=== PATIENT | male | born 1970 | race Caucasian/White ===

== ENCOUNTER 2020-08-09 11:10 | Inpatient (IN) | payer OTHER ==
[2020-08-09] MEDS ORDERED: DEXAMETHASONE 4 MG TABLET (FP) PO ONE (11:32)
[2020-08-09] MEDS ORDERED: LACTATED RINGERS SOLUTION 1000 ML INFUS.BAG IV ONE (11:32)
[2020-08-09 11:57] LABS: BASO % 0.4 % (0-2.0); HEMATOCRIT 41.1 % (35.4-49); HEMOGLOBIN 14.1 GM/dL (11.7-16.9); LYMPH % 15.6 % (8-40); MCH 31.9 pg (25.7-33.7); MCHC 34.3 g/dl (32.0-35.9); MEAN PLT VOLUME 7.8 fl (7.5-11.1); MONO % 7.9 % (3.8-10.2); NEUT % 76.1 % (42.8-82.8); PLATELET COUNT 167 K/MM3 (134-434); RBC 4.42 M/mm3 (4.00-5.60); RDW 13.6 % (11.9-15.9); WHITE BLOOD COUNT 4.6 K/mm3 (4.0-10.0)
[2020-08-09] MEDS ORDERED: DEXAMETHASONE SOD PHOSPHATE 10 MG/1 ML VIAL ONE (11:57)
[2020-08-09 12:09] LABS: CHLORIDE 97 mmol/L (98-107); POTASSIUM 3.9 mmol/L (3.5-5.1); SODIUM 128 mmol/L (136-145)
[2020-08-09 12:11] LABS: ALBUMIN 3.5 g/dl (3.4-5.0); ANION GAP 7 MMOL/L (8-16); CO2 24 mmol/L (21-32); GLUCOSE,RANDOM 102 mg/dL (74-106)
[2020-08-09 12:14] LABS: SGOT/AST 87 U/L (15-37); SGPT/ALT 94 U/L (13-61)
[2020-08-09 12:16] LABS: BILIRUBIN,TOTAL 0.6 mg/dL (0.2-1); TOT PROT 7.4 g/dl (6.4-8.2)
[2020-08-09 12:17] LABS: ALK PHOS 68 U/L (45-117)
[2020-08-09 12:19] LABS: LDH 467 U/L (87-246)
[2020-08-09 13:31] LABS: EPI CELLS 5 /uL (0-25.1); HYALINE CASTS 0 /uL (0-3.1); URINE APPEARANCE CLEAR; URINE BACTERIA 335 /uL (0-1359); URINE BILIRUBIN NEGATIVE (NEGATIVE); URINE COLOR YELLOW; URINE GLUCOSE (UA) NEGATIVE (NEGATIVE); URINE KETONE NEGATIVE (NEGATIVE); URINE LEUK ESTERASE NEGATIVE (NEGATIVE); URINE NITRITE NEGATIVE (NEGATIVE); URINE PROTEIN 1+ (NEGATIVE); URINE RBC 9 /uL (0-23.9); URINE UROBILINOGEN 0.2 mg/dL (0.2-1.0); URINE WBC 9 /uL (0-25.8)
[2020-08-09] MEDS ORDERED: CEFTRIAXONE 1 GM/50 ML BAG ONE (14:34)
[2020-08-09] MEDS ORDERED: AZITHROMYCIN IVPB 500 MG/250 ML BAG IVPB ONE (14:35)
[2020-08-09] MEDS: CEFTRIAXONE 1 GM in DEXTROSE 5%-WATER - 50 ML IVPB SCH (14:49)
[2020-08-09] MEDS: AZITHROMYCIN IVPB 500 MG/250 ML BAG IVPB SCH (14:50)
[2020-08-09] MEDS ORDERED: REMDESIVIR 200 MG in SODIUM CHLORIDE 210 ML IVPB ONE (15:00)
[2020-08-09] MEDS ORDERED: ALBUTEROL SO4 HFA INHALER IH ONE (15:59)
[2020-08-09] MEDS: ALBUTEROL SO4 HFA INHALER IH SCH ×2 (16:00→22:35)
[2020-08-09] MEDS: ENOXAPARIN NA (PORCINE) 100 MG/1 ML DISP.SYRIN SQ SCH (22:21)
[2020-08-09] MEDS: BUDESONIDE/FORMETEROL FUMARATE 160/4.5 mcg INHALER IH SCH (22:22)
[2020-08-09] MEDS: ASCORBIC ACID 250 MG TABLET (FP) PO SCH (22:22)
[2020-08-09] MEDS: ZINC SULFATE 220 MG CAPSULE (FP) PO SCH (22:22)
[2020-08-10] MEDS: guaiFENesin/CODEINE 10 ML UNIT-DOSE CUPS PO PRN ×2 (07:07→21:11)
[2020-08-10 08:00] LABS: BASO % 0.2 % (0-2.0); HEMATOCRIT 42.3 % (35.4-49); HEMOGLOBIN 14.6 GM/dL (11.7-16.9); LYMPH % 26.4 % (8-40); MCH 32.1 pg (25.7-33.7); MCHC 34.4 g/dl (32.0-35.9); MEAN CELL VOLUME 93.3 fl (80-96); MEAN PLT VOLUME 7.8 fl (7.5-11.1); MONO % 8.8 % (3.8-10.2); NEUT % 64.6 % (42.8-82.8); PLATELET COUNT 187 K/MM3 (134-434); RBC 4.53 M/mm3 (4.00-5.60); RDW 13.8 % (11.9-15.9); WHITE BLOOD COUNT 4.2 K/mm3 (4.0-10.0)
[2020-08-10] MEDS: ALBUTEROL SO4 HFA INHALER IH SCH ×4 (08:00→21:12)
[2020-08-10 08:11] LABS: POTASSIUM 4.1 mmol/L (3.5-5.1)
[2020-08-10 08:21] LABS: CALCIUM 7.4 mg/dL (8.5-10.1)
[2020-08-10 08:22] LABS: MAGNESIUM 2.4 mg/dL (1.8-2.4); PHOSPHOROUS 3.6 mg/dL (2.5-4.9)
[2020-08-10 08:23] LABS: BILIRUBIN,TOTAL 0.5 mg/dL (0.2-1); TOT PROT 6.7 g/dl (6.4-8.2)
[2020-08-10 08:24] LABS: CREATININE 0.8 mg/dL (0.55-1.3)
[2020-08-10] MEDS ORDERED: cefTRIAXone SODIUM 1 GM VIAL ONE ×2 (09:47→11:33)
[2020-08-10] MEDS ORDERED: DEXTROSE 5%-WATER - 50 ML IVPB ONE ×2 (09:48→11:33)
[2020-08-10] MEDS: AZITHROMYCIN IVPB 500 MG/250 ML BAG IVPB SCH (09:56)
[2020-08-10] MEDS: CEFTRIAXONE 1 GM in DEXTROSE 5%-WATER - 50 ML IVPB SCH (09:57)
[2020-08-10] MEDS: ENOXAPARIN NA (PORCINE) 100 MG/1 ML DISP.SYRIN SQ SCH ×2 (09:57→21:12)
[2020-08-10] MEDS: CHOLECALCIFEROL (VIT D3) 1,000 UNIT (25 MCG) TABLET PO SCH (09:58)
[2020-08-10] MEDS: ASCORBIC ACID 250 MG TABLET (FP) PO SCH ×2 (09:58→21:16)
[2020-08-10] MEDS: ZINC SULFATE 220 MG CAPSULE (FP) PO SCH ×2 (09:58→21:12)
[2020-08-10] MEDS: DEXAMETHASONE SOD PHOSPHATE 10 MG/1 ML VIAL IVPUSH SCH (09:58)
[2020-08-10] MEDS ORDERED: ENOXAPARIN NA (PORCINE) 40 MG/0.4 ML DISP.SYRIN SQ SCH (10:00)
[2020-08-10] MEDS: BUDESONIDE/FORMETEROL FUMARATE 160/4.5 mcg INHALER IH SCH ×2 (10:03→21:13)
[2020-08-10] MEDS: MENTHOL/PHENOL 1 EACH UD MM PRN (10:26)
[2020-08-10] MEDS: REMDESIVIR 100 MG in SODIUM CHLORIDE 230 ML IVPB SCH (15:15)
[2020-08-10] MEDS ORDERED: SODIUM CHLORIDE NASAL SPRAY 44 ML BOTTLE NS PRN (20:07)
[2020-08-11 07:55] LABS: HEMATOCRIT 41.7 % (35.4-49); HEMOGLOBIN 14.1 GM/dL (11.7-16.9); MCH 31.9 pg (25.7-33.7); MCHC 33.9 g/dl (32.0-35.9); MEAN CELL VOLUME 93.9 fl (80-96); MEAN PLT VOLUME 7.7 fl (7.5-11.1); PLATELET COUNT 226 K/MM3 (134-434); RBC 4.44 M/mm3 (4.00-5.60); RDW 13.9 % (11.9-15.9); WHITE BLOOD COUNT 5.2 K/mm3 (4.0-10.0)
[2020-08-11] MEDS: ALBUTEROL SO4 HFA INHALER IH SCH ×4 (08:00→21:18)
[2020-08-11 08:22] LABS: POTASSIUM 4.3 mmol/L (3.5-5.1)
[2020-08-11 08:24] LABS: BLOOD UREA NITROGEN 16.8 mg/dL (7-18); CALCIUM 7.8 mg/dL (8.5-10.1)
[2020-08-11 08:27] LABS: CREATININE 0.7 mg/dL (0.55-1.3)
[2020-08-11] MEDS: guaiFENesin/CODEINE 10 ML UNIT-DOSE CUPS PO PRN ×2 (10:47→21:20)
[2020-08-11] MEDS: ZINC SULFATE 220 MG CAPSULE (FP) PO SCH ×2 (10:47→21:18)
[2020-08-11] MEDS: DEXAMETHASONE SOD PHOSPHATE 10 MG/1 ML VIAL IVPUSH SCH (10:47)
[2020-08-11] MEDS: ENOXAPARIN NA (PORCINE) 100 MG/1 ML DISP.SYRIN SQ SCH ×2 (10:47→21:18)
[2020-08-11] MEDS: CHOLECALCIFEROL (VIT D3) 1,000 UNIT (25 MCG) TABLET PO SCH (10:49)
[2020-08-11] MEDS: ASCORBIC ACID 250 MG TABLET (FP) PO SCH ×2 (10:49→21:19)
[2020-08-11] MEDS: BUDESONIDE/FORMETEROL FUMARATE 160/4.5 mcg INHALER IH SCH ×2 (10:52→21:18)
[2020-08-11] MEDS: REMDESIVIR 100 MG in SODIUM CHLORIDE 230 ML IVPB SCH (15:35)
[2020-08-11] MEDS ORDERED: PT OWN MED DRAWER 7, Y5N ONE ×2 (20:41→21:21)
[2020-08-11] MEDS: MENTHOL/PHENOL 1 EACH UD MM PRN (21:21)
[2020-08-12 07:22] LABS: HEMATOCRIT 40.3 % (35.4-49); HEMOGLOBIN 13.8 GM/dL (11.7-16.9); MCH 32.3 pg (25.7-33.7); MCHC 34.2 g/dl (32.0-35.9); MEAN CELL VOLUME 94.6 fl (80-96); MEAN PLT VOLUME 7.8 fl (7.5-11.1); PLATELET COUNT 239 K/MM3 (134-434); RBC 4.26 M/mm3 (4.00-5.60); RDW 13.5 % (11.9-15.9)
[2020-08-12 07:33] LABS: POTASSIUM 4.1 mmol/L (3.5-5.1)
[2020-08-12 07:35] LABS: CALCIUM 7.3 mg/dL (8.5-10.1)
[2020-08-12 07:36] LABS: ALBUMIN 2.8 g/dl (3.4-5.0); BLOOD UREA NITROGEN 15.1 mg/dL (7-18)
[2020-08-12 07:39] LABS: CREATININE 0.7 mg/dL (0.55-1.3)
[2020-08-12 07:40] LABS: BILIRUBIN,TOTAL 0.5 mg/dL (0.2-1); TOT PROT 6.2 g/dl (6.4-8.2)
[2020-08-12] MEDS ORDERED: PT OWN MED DRAWER 7, Y5N ONE ×2 (09:24→22:04)
[2020-08-12] MEDS: ENOXAPARIN NA (PORCINE) 100 MG/1 ML DISP.SYRIN SQ SCH ×2 (09:39→21:59)
[2020-08-12] MEDS: guaiFENesin/CODEINE 10 ML UNIT-DOSE CUPS PO PRN ×2 (09:40→21:59)
[2020-08-12] MEDS: ZINC SULFATE 220 MG CAPSULE (FP) PO SCH ×2 (09:40→21:59)
[2020-08-12] MEDS: DEXAMETHASONE SOD PHOSPHATE 10 MG/1 ML VIAL IVPUSH SCH (09:40)
[2020-08-12] MEDS: CHOLECALCIFEROL (VIT D3) 1,000 UNIT (25 MCG) TABLET PO SCH (09:40)
[2020-08-12] MEDS: ASCORBIC ACID 250 MG TABLET (FP) PO SCH ×2 (09:41→22:08)
[2020-08-12] MEDS: BUDESONIDE/FORMETEROL FUMARATE 160/4.5 mcg INHALER IH SCH ×2 (09:42→21:59)
[2020-08-12] MEDS: ALBUTEROL SO4 HFA INHALER IH SCH ×4 (09:42→21:03)
[2020-08-12] MEDS: MENTHOL/PHENOL 1 EACH UD MM PRN ×2 (09:59→16:41)
[2020-08-12 12:07] VITALS: BMI 29.3
[2020-08-12] MEDS: REMDESIVIR 100 MG in SODIUM CHLORIDE 230 ML IVPB SCH (16:41)
[2020-08-13 08:15] LABS: HEMATOCRIT 41.6 % (35.4-49); HEMOGLOBIN 14.3 GM/dL (11.7-16.9); MCH 32.3 pg (25.7-33.7); MCHC 34.4 g/dl (32.0-35.9); MEAN CELL VOLUME 93.7 fl (80-96); MEAN PLT VOLUME 7.6 fl (7.5-11.1); PLATELET COUNT 265 K/MM3 (134-434); RBC 4.44 M/mm3 (4.00-5.60); RDW 13.7 % (11.9-15.9); WHITE BLOOD COUNT 7.6 K/mm3 (4.0-10.0)
[2020-08-13 08:38] LABS: POTASSIUM 4.4 mmol/L (3.5-5.1)
[2020-08-13 08:48] LABS: CALCIUM 7.7 mg/dL (8.5-10.1)
[2020-08-13 08:49] LABS: BLOOD UREA NITROGEN 17.5 mg/dL (7-18)
[2020-08-13 08:52] LABS: CREATININE 0.7 mg/dL (0.55-1.3)
[2020-08-13] MEDS: ALBUTEROL SO4 HFA INHALER IH SCH ×4 (09:10→21:48)
[2020-08-13] MEDS: BUDESONIDE/FORMETEROL FUMARATE 160/4.5 mcg INHALER IH SCH ×2 (09:10→21:48)
[2020-08-13] MEDS ORDERED: PT OWN MED DRAWER 7, Y5N ONE (10:43)
[2020-08-13] MEDS: ENOXAPARIN NA (PORCINE) 100 MG/1 ML DISP.SYRIN SQ SCH ×2 (10:51→21:48)
[2020-08-13] MEDS: ZINC SULFATE 220 MG CAPSULE (FP) PO SCH ×2 (10:52→21:48)
[2020-08-13] MEDS: CHOLECALCIFEROL (VIT D3) 1,000 UNIT (25 MCG) TABLET PO SCH (10:53)
[2020-08-13] MEDS: ASCORBIC ACID 250 MG TABLET (FP) PO SCH ×2 (10:57→21:48)
[2020-08-13] MEDS: DEXAMETHASONE SOD PHOSPHATE 10 MG/1 ML VIAL IVPUSH SCH (11:36)
[2020-08-13] MEDS: REMDESIVIR 100 MG in SODIUM CHLORIDE 230 ML IVPB SCH (15:23)
[2020-08-13] MEDS: guaiFENesin/CODEINE 10 ML UNIT-DOSE CUPS PO PRN (21:48)
[2020-08-14 08:06] LABS: HEMATOCRIT 40.9 % (35.4-49); HEMOGLOBIN 14.2 GM/dL (11.7-16.9); MCH 32.2 pg (25.7-33.7); MCHC 34.7 g/dl (32.0-35.9); MEAN CELL VOLUME 92.8 fl (80-96); MEAN PLT VOLUME 7.3 fl (7.5-11.1); PLATELET COUNT 317 K/MM3 (134-434); RDW 13.7 % (11.9-15.9); WHITE BLOOD COUNT 8.6 K/mm3 (4.0-10.0)
[2020-08-14 08:21] LABS: POTASSIUM 4.6 mmol/L (3.5-5.1)
[2020-08-14 08:22] LABS: CALCIUM 8.1 mg/dL (8.5-10.1)
[2020-08-14 08:23] LABS: ALBUMIN 2.9 g/dl (3.4-5.0); BLOOD UREA NITROGEN 15.7 mg/dL (7-18)
[2020-08-14 08:26] LABS: CREATININE 0.7 mg/dL (0.55-1.3)
[2020-08-14 08:28] LABS: BILIRUBIN,TOTAL 0.8 mg/dL (0.2-1); TOT PROT 6.3 g/dl (6.4-8.2)
[2020-08-14] MEDS: ALBUTEROL SO4 HFA INHALER IH SCH ×4 (08:30→21:00)
[2020-08-14] MEDS: BUDESONIDE/FORMETEROL FUMARATE 160/4.5 mcg INHALER IH SCH ×2 (09:00→23:00)
[2020-08-14] MEDS: ZINC SULFATE 220 MG CAPSULE (FP) PO SCH ×2 (10:34→21:33)
[2020-08-14] MEDS: ENOXAPARIN NA (PORCINE) 100 MG/1 ML DISP.SYRIN SQ SCH ×2 (10:34→21:33)
[2020-08-14] MEDS: CHOLECALCIFEROL (VIT D3) 1,000 UNIT (25 MCG) TABLET PO SCH (10:36)
[2020-08-14] MEDS ORDERED: PT OWN MED DRAWER 7, Y5N ONE ×2 (10:37→20:21)
[2020-08-14] MEDS: ASCORBIC ACID 250 MG TABLET (FP) PO SCH ×2 (10:37→21:34)
[2020-08-14] MEDS: guaiFENesin/CODEINE 10 ML UNIT-DOSE CUPS PO PRN (10:41)
[2020-08-14] MEDS: DEXAMETHASONE SOD PHOSPHATE 10 MG/1 ML VIAL IVPUSH SCH (11:22)
[2020-08-15 06:46] LABS: BASO % 0.4 % (0-2.0); EOS % 0.1 % (0-4.5); HEMATOCRIT 40.9 % (35.4-49); HEMOGLOBIN 14.1 GM/dL (11.7-16.9); LYMPH % 18.4 % (8-40); MCH 32.1 pg (25.7-33.7); MCHC 34.5 g/dl (32.0-35.9); MEAN CELL VOLUME 92.9 fl (80-96); MEAN PLT VOLUME 7.2 fl (7.5-11.1); MONO % 4.7 % (3.8-10.2); NEUT % 76.4 % (42.8-82.8); PLATELET COUNT 336 K/MM3 (134-434); RDW 13.6 % (11.9-15.9); WHITE BLOOD COUNT 9.6 K/mm3 (4.0-10.0)
[2020-08-15 07:08] LABS: CALCIUM 7.9 mg/dL (8.5-10.1)
[2020-08-15 07:09] LABS: ALBUMIN 2.9 g/dl (3.4-5.0); MAGNESIUM 2.2 mg/dL (1.8-2.4)
[2020-08-15 07:12] LABS: CREATININE 0.7 mg/dL (0.55-1.3)
[2020-08-15 07:13] LABS: BILIRUBIN,TOTAL 1.1 mg/dL (0.2-1); TOT PROT 6.2 g/dl (6.4-8.2)
[2020-08-15] MEDS: ALBUTEROL SO4 HFA INHALER IH SCH ×4 (08:30→20:26)
[2020-08-15 09:55] LABS: ANISOCYTOSIS 0; MACROCYTOSIS 0; PLATELET ESTIMATE NORMAL
[2020-08-15] MEDS ORDERED: PT OWN MED DRAWER 7, Y5N ONE (10:07)
[2020-08-15] MEDS: ZINC SULFATE 220 MG CAPSULE (FP) PO SCH ×2 (10:12→21:28)
[2020-08-15] MEDS: ENOXAPARIN NA (PORCINE) 100 MG/1 ML DISP.SYRIN SQ SCH ×2 (10:12→21:28)
[2020-08-15] MEDS: CHOLECALCIFEROL (VIT D3) 1,000 UNIT (25 MCG) TABLET PO SCH (10:12)
[2020-08-15] MEDS: MENTHOL/PHENOL 1 EACH UD MM PRN ×2 (10:13→21:29)
[2020-08-15] MEDS: ASCORBIC ACID 250 MG TABLET (FP) PO SCH ×2 (10:13→22:00)
[2020-08-15] MEDS: BUDESONIDE/FORMETEROL FUMARATE 160/4.5 mcg INHALER IH SCH ×2 (10:13→21:28)
[2020-08-15] MEDS: DEXAMETHASONE SOD PHOSPHATE 10 MG/1 ML VIAL IVPUSH SCH (10:13)
[2020-08-16] MEDS ORDERED: MELATONIN 5 MG TABLETS PO ONE (01:30)
[2020-08-16] MEDS: ALBUTEROL SO4 HFA INHALER IH SCH ×2 (09:01→13:49)
[2020-08-16] MEDS ORDERED: PT OWN MED DRAWER 7, Y5N ONE (09:26)
[2020-08-16] MEDS: CHOLECALCIFEROL (VIT D3) 1,000 UNIT (25 MCG) TABLET PO SCH (10:00)
[2020-08-16] MEDS ORDERED: DEXAMETHASONE 4 MG TABLET (FP) PO ONE (10:00)
[2020-08-16] MEDS: ASCORBIC ACID 250 MG TABLET (FP) PO SCH (10:00)
[2020-08-16] MEDS ORDERED: DEXAMETHASONE 4 MG TABLET (FP) PO SCH (10:00)
[2020-08-16] MEDS: ZINC SULFATE 220 MG CAPSULE (FP) PO SCH (10:02)
[2020-08-16] MEDS: ENOXAPARIN NA (PORCINE) 100 MG/1 ML DISP.SYRIN SQ SCH (10:03)
[2020-08-16] MEDS: BUDESONIDE/FORMETEROL FUMARATE 160/4.5 mcg INHALER IH SCH (10:04)
[2020-08-16 15:04] VITALS: BP 112/71; PULSE 89; TEMP 98.6
== END 2020-08-16 20:35 | disposition home or self-care (01) | DRG 137 ==
LOC: JER 11:10 → JERBED 11:51 → J7W 18:17
PROVIDERS: ADMIT Internal Medicine; ATTEND Internal Medicine
PROC: XW033E5 Introduction of Remdesivir Anti-infective into Peripheral Vein, Percutaneous Approach, New Technology Group 5 (ICD-10-PCS; principal; 2020-08-09)
PROC: XW13325 Transfusion of Convalescent Plasma (Nonautologous) into Peripheral Vein, Percutaneous Approach, New Technology Group 5 (ICD-10-PCS; 2020-08-10)
DX: U07.1 COVID-19 (principal); J96.01 Acute respiratory failure with hypoxia; J12.82 Pneumonia due to coronavirus disease 2019; E87.1 Hypo-osmolality and hyponatremia; M62.82 Rhabdomyolysis; I10 Essential (primary) hypertension; R74.01 Elevation of levels of liver transaminase levels
CPT/HCPCS: 36415; 36430; 71045-TC-FY; 80048; 80053; 81003; 82550; 82553; 82728; 83615; 83735; 84100; 84484; 85025; 85027; 85379; 86140; 86769; 86850; 86900; 86901; 87040; 87086; 87804; 87899; 93005; 93010; 94761; 97116-GP; 97162-GP; 99285-25; C9399; C9803; J1100; P9017; U0003